=== PATIENT | male | born 1935 ===

== ENCOUNTER 2020-12-12 10:20 | Inpatient (IN) ==
[2020-12-12] MEDS ORDERED: NOREPINEPHRINE 4 MG/4 ML VIAL IV ONE ×2 (12:36→15:18)
[2020-12-12] MEDS: NOREPINEPHRINE 8 MG in SODIUM CHLORIDE 0.9% 242 ML IV PRN ×4 (12:40→17:48)
[2020-12-12] MEDS ORDERED: ACETAMINOPHEN 325 MG TABLET PO PRN (12:49)
[2020-12-12] MEDS ORDERED: MORPHINE 2 MG/1 ML SYRINGE IV PRN (12:49)
[2020-12-12] MEDS ORDERED: ALBUTEROL 2.5 MG/3 ML NEB RESP TX PRN (12:49)
[2020-12-12] MEDS ORDERED: FAMOTIDINE 20 MG/2 ML VIAL IV SCH ×2 (13:00→13:30)
[2020-12-12] MEDS ORDERED: SODIUM BICARB INJ 150 MEQ in DEXTROSE 5% 1,000 ML IV SCH (13:00)
[2020-12-12] MEDS ORDERED: ENOXAPARIN 30 MG/0.3 ML SYRINGE SUBCUT SCH (13:00)
[2020-12-12] MEDS: cefTRIAXone 1,000 MG in SODIUM CHLORIDE 0.9% 100 ML IV SCH ×2 (13:00→17:22)
[2020-12-12 13:12] LABS: ABG Base Excess -23.6 MMOL/L (-2.5-2.5); ABG HCO3 7.2 MMOL/L (20-26); ABG Oxygen Saturation 93.8 % (95-100); ABG PCO2 40.4 MM HG (35-48); ABG TCO2 8.2 MMOL/L (23-27)
[2020-12-12 13:14] LABS: ABG PH 6.895 (7.35-7.45)
[2020-12-12] MEDS ORDERED: SODIUM BICARBONATE 50 MEQ/50 ML VIAL IV ONE ×4 (13:18→16:07)
[2020-12-12 13:22] LABS: Basophils # 0.3 10*3/uL (0.0-0.2); Eosinophils # 0.2 10*3/uL (0.0-0.87); Eosinophils % 0.5 % (0.00-10.9); Hemoglobin 7.6 GM/DL (14.0-18.0); Immature Granulocytes % 8.6 %; Immature Granulocytes Absolute 2.81 #; Lymphocytes # 7.3 10*3/uL (1.4-4.0); Lymphocytes % 22.5 % (21.2-54.2); Mean Corpuscular HGB Conc 30.4 GM/DL (32-36); Mean Corpuscular Volume 104.6 FL (87-102); Monocytes % 2.5 % (1.7-12.7); NRBC # 1.68 10*3/uL; Neutrophils % 64.9 % (38.7-73.9); Platelet Count 85 T/CUMM (130-400); Red Blood Count 2.39 MC/CUMM (3.8-5.5); Red Cell Distribution Width 23.5 % (9.3-17.3); White Blood Count 32.6 T/CUMM (4-12)
[2020-12-12 13:26] LABS: INR 1.5; PT Patient Result 16.4 SECS (10.5-12.0)
[2020-12-12 13:34] LABS: Alanine Aminotransferase 112 U/L (16-61); Albumin 2.2 G/DL (3.4-5.0); Alkaline Phosphatase 464 U/L (45-117); Aspartate Amino Transferase 214 U/L (0-37); Blood Urea Nitrogen 48 MG/DL (7-18); Calcium 7.3 MG/DL (8.5-10.1); Carbon Dioxide 9 MMOL/L (21-32); Estimated Glom Filtration Rate 24 ML/MIN; Glucose 93 MG/DL (74-106); Sodium 143 MMOL/L (136-145); Total Protein 4.7 G/DL (6.4-8.2)
[2020-12-12 13:38] LABS: Potassium 6.4 MMOL/L (3.5-5.1)
[2020-12-12] MEDS ORDERED: GLUCAGON 1 MG VIAL IM PRN (13:38)
[2020-12-12] MEDS ORDERED: DEXTROSE 50% 25 GM/50 ML VIAL IV PRN (13:38)
[2020-12-12] MEDS ORDERED: PHENYLEPHRINE DRIP 40 MG/250 ML PREMIX IV PRN (13:42)
[2020-12-12] MEDS ORDERED: DEXTROSE 50% 25 GM/50 ML VIAL IV ONE (13:45)
[2020-12-12] MEDS ORDERED: INSULIN REGULAR 100 UNIT/ML IV ONE (13:46)
[2020-12-12] MEDS ORDERED: CALCIUM GLUCONATE 1,000 MG in SODIUM CHLORIDE 0.9% 100 ML IV ONE (14:00)
[2020-12-12 14:27] LABS: Band Neutrophils 4 % (0-10); Lymphocytes 30 % (20-55); Metamyelocytes 1 %; Myelocytes 7 %; Nucleated Red Blood Cells 11 (0-5); Segmented Neutrophils 53 % (50-85); Total Cells Counted 100
[2020-12-12 14:36] LABS: Anisocytosis 2+; Macrocytosis 1+; Ovalocytes 1+; Poikilocytosis 2+
[2020-12-12 14:37] LABS: Acanthocytes 1+; Burr Cells 1+
[2020-12-12 14:38] LABS: Polychromasia 1+
[2020-12-12 14:39] LABS: Platelet Estimate Adequate
[2020-12-12 14:49] LABS: ABG HCO3 10.7 MMOL/L (20-26); ABG Oxygen Saturation 98.5 % (95-100); ABG PCO2 36.4 MM HG (35-48); ABG TCO2 10.7 MMOL/L (23-27)
[2020-12-12 14:51] LABS: ABG PH 7.081 (7.35-7.45)
[2020-12-12] MEDS ORDERED: PHENYLEPHRINE DRIP 40 MG/250 ML PREMIX IV ONE (16:10)
[2020-12-12] MEDS: PHENYLEPHRINE INJ 160 MG in SODIUM CHLORIDE 0.9% 234 ML IV PRN ×2 (16:19→18:57)
[2020-12-12] MEDS: SODIUM BICARB INJ 150 MEQ in DEXTROSE 5% 1,000 ML IV SCH ×2 (16:25→22:46)
[2020-12-12] MEDS: NOREPINEPHRINE 16 MG in SODIUM CHLORIDE 0.9% 234 ML IV PRN ×2 (16:58→20:29)
[2020-12-12] MEDS ORDERED: MEROPENEM 500 MG in SODIUM CHLORIDE 0.9% 100 ML IV SCH (17:00)
[2020-12-12] MEDS: HYDROCORTISONE 100 MG VIAL IV SCH ×2 (17:12→20:34)
[2020-12-12 19:00] LABS: Albumin 1.9 G/DL (3.4-5.0); Bilirubin,Total 2.4 MG/DL (0.20-1.00); Calcium 6.9 MG/DL (8.5-10.1); Osmolality,Calculated 308.3 MOS/KG (273-304); Total Protein 4.1 G/DL (6.4-8.2)
[2020-12-12 21:18] VITALS: BP 112/42
[2020-12-13] MEDS: NOREPINEPHRINE 16 MG in SODIUM CHLORIDE 0.9% 234 ML IV PRN ×2 (00:20→04:13)
[2020-12-13] MEDS: HYDROCORTISONE 100 MG VIAL IV SCH (01:48)
[2020-12-13] MEDS ORDERED: SODIUM BICARBONATE 50 MEQ/50 ML VIAL IV ONE (03:04)
[2020-12-13 03:47] LABS: ABG Base Excess -23.3 MMOL/L (-2.5-2.5); ABG HCO3 7.1 MMOL/L (20-26); ABG Oxygen Saturation 97.3 % (95-100); ABG PCO2 28.2 MM HG (35-48); ABG TCO2 6.7 MMOL/L (23-27)
[2020-12-13 03:50] LABS: ABG PH 6.973 (7.35-7.45)
[2020-12-13 04:10] LABS: Basophils # 0.5 10*3/uL (0.0-0.2); Basophils % 0.9 % (0.0-0.8); Eosinophils # 0.2 10*3/uL (0.0-0.87); Eosinophils % 0.4 % (0.00-10.9); Hematocrit 21.7 VOL% (42.0-52.0); Immature Granulocytes % 13.6 %; Immature Granulocytes Absolute 7.98 #; Lymphocytes # 5.8 10*3/uL (1.4-4.0); Lymphocytes % 9.9 % (21.2-54.2); Mean Corpuscular Volume 111.9 FL (87-102); Monocytes % 8.3 % (1.7-12.7); Neutrophils % 66.9 % (38.7-73.9); Platelet Count 51 T/CUMM (130-400); Red Blood Count 1.94 MC/CUMM (3.8-5.5)
[2020-12-13 04:21] LABS: Hemoglobin 6.3 GM/DL (14.0-18.0); White Blood Count 58.6 T/CUMM (4-12)
[2020-12-13 04:47] LABS: Band Neutrophils 6 % (0-10); Hypochromasia Slight; Lymphocytes 11 % (20-55); Microcytosis Slight; Myelocytes 4 %; Nucleated Red Blood Cells 6 (0-5); Ovalocytes Slight; Platelet Estimate Decreased; Segmented Neutrophils 75 % (50-85); Total Cells Counted 100
[2020-12-13 05:45] LABS: INR 3.5
[2020-12-13 05:49] LABS: PT Patient Result 36.3 SECS (10.5-12.0)
[2020-12-13 06:32] LABS: Albumin 1.7 G/DL (3.4-5.0); Bilirubin,Total 4.9 MG/DL (0.20-1.00); Calcium 6.8 MG/DL (8.5-10.1); Osmolality,Calculated 303.4 MOS/KG (273-304); Total Protein 3.8 G/DL (6.4-8.2)
[2020-12-13 06:33] LABS: Potassium 6.6 MMOL/L (3.5-5.1)
== END 2020-12-13 04:36 | disposition expired | DRG 871 ==
LOC: N.CC 12:45
PROVIDERS: ADMIT Family Medicine; ATTEND Family Medicine